=== PATIENT | female | born 1970 | race Caucasian/White ===

== ENCOUNTER 2023-01-25 12:56 | Emergency (ER) | payer OTHER, SELFPAY ==
--- NOTE | 2023-01-25 13:08 | ECG_ITS ---
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
--- NOTE | 2023-01-25 13:08 | XR_ITS ---
[address] [address] Patient Name: VERÓNICA BATISTA MRN: [id number] date: 1970 Sex: F Assigned Patient Location: ER Current Patient Location: ED.MAIN Accession/Order Number: [id number] Exam Date: 01/25/2023 13:12 Report Date: 01/25/2023 13:28 At the request of: SIM VELAZQUEZ Procedure: XR chest 1V EXAM: XR chest 1V HISTORY: SVT COMPARISON: None. TECHNIQUE: AP view of the chest. FINDINGS: The cardiomediastinal silhouette is normal. The lungs are clear. There is no pneumothorax. No pleural effusion is noted. The osseous structures are intact. IMPRESSION: No acute cardiopulmonary process. Electronically authenticated by: SHANNAN CLEARY Date: 01/25/2023 13:28
[2023-01-25 13:10] VITALS: BP 149/102; PULSE 195; RESP 20; TEMP 36.8; O2SAT 100; BMI 47.3
--- NOTE | 2023-01-25 13:11 | ED_ITS ---
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 Patient denied prior history of SVT or rapid atrial fibrillation. She takes medicine for diabetes and for her thyroid. She said that she had a similar episode previously but with deep calming breaths it went away . No recent illness or injury. No fever or chills. She is anxious on arrival. Related Data Home Medications Medication Instructions Recorded Confirmed levocetirizine 5 mg tablet 5 mg PO DAILY 01/25/23 01/25/23 (Allergy Relief (levocetirizine)) levothyroxine 100 mcg tablet 100 mcg PO DAILY 01/25/23 01/25/23 (Euthyrox) lovastatin 20 mg tablet 20 mg PO DAILY 01/25/23 01/25/23 semaglutide 2 mg/dose (8 mg/3 mL) 2 mg subcut QWEEK 01/25/23 01/25/23 subcutaneous pen injector (Ozempic) Previous Rx's Medication Instructions Recorded diltiazem HCl 120 mg tablet 120 mg PO QDAY #30 tabs 01/25/23 (Cardizem) Allergies Allergy/AdvReac Type Severity Reaction Status Date / Time No Known Drug Allergies Allergy Verified 01/25/23 13:10 Exam Narrative Exam Narrative: Nurses notes and vital signs reviewed and patient is not hypoxic. afebrile General: Well-appearing and in no apparent distress. Skin: Warm, dry, no pallor noted. No rash. Head: Normocephalic, atraumatic. Eye: Pupils are equal, round and EOMI. No scleral icterus. Ears, Nose, Mouth, and Throat: Oral mucosa is moist Cardiovascular: Tachycardia. Respiratory: No accessory muscle use or respiratory distress. Lungs are clear to auscultation, no wheezing, rales or rhonchi Musculoskeletal: normal ROM, no calf or popliteal tenderness, no lower extremity edema/swelling GI: Abdomen is soft, non-distended. Normal bowel sounds. No tenderness to palpation. No rebound, guarding, or rigidity noted. Neurological: A&O x4. No cranial nerve dysfunction observed. No truncal ataxia. Moves all extremities. Sensation intact. Psychiatric: Cooperative and interactive. Normal mood and affect. Constitutional Vital Signs - 24 hr 01/25/23 13:10 01/25/23 13:39 01/25/23 13:54 Temperature 98.3 F Pulse Rate 170 H 86 Pulse Rate [Monitor] 195 H Respiratory Rate 20 20 12 Blood Pressure 128/77 H 120/74 H Blood Pressure [Right Arm] 149/102 H Pulse Oximetry 100 100 Oxygen Delivery Method Nasal Cannula Oxygen Delivery Flow Rate 2 1 01/25/23 14:39 01/25/23 14:40 Temperature Pulse Rate 97 H Pulse Rate [Monitor] Respiratory Rate 12 Blood Pressure 116/96 H Blood Pressure [Right Arm] Pulse Oximetry Oxygen Delivery Method Room Air Oxygen Delivery Flow Rate Course Vital Signs Vital signs: Vital Signs Temperature 98.3 F 01/25/23 13:10 Pulse Rate 195 H 01/25/23 13:10 Respiratory Rate 20 01/25/23 13:10 Blood Pressure 149/102 H 01/25/23 13:10 Pulse Oximetry 100 01/25/23 13:10 Oxygen Delivery Method Nasal Cannula 01/25/23 13:10 Oxygen Delivery Flow Rate 2 01/25/23 13:10 Temperature 98.3 F 01/25/23 13:10 Pulse Rate 97 H 01/25/23 14:39 Respiratory Rate 12 01/25/23 14:39 Blood Pressure 116/96 H 01/25/23 14:39 Pulse Oximetry 100 01/25/23 13:54 Oxygen Delivery Method Room Air 01/25/23 14:40 Oxygen Delivery Flow Rate 1 01/25/23 13:54 Medical Decision Making MDM Narrative Medical decision making narrative: Patient was placed on cardiac tech and EKG obtained. peripheral IV was est ablished and patient was instructed to be placed on 2 L/m nasal cannula oxygen. Blood drawn and sent for evaluation. portal chest x-ray was ordered. The patient was ordered to receive IV adenosine 6 mg. It slowed her HR to 170s but did not resolved her tachycardia. 12mg Adenosine IV did not affect the HR. The patient was ordered to receive Cardizem 20mg IV. That converted her to NSR @ 92bpm. She immediately felt better. Her workup was otherwise unremarkable - normal electrolytes and kidney function, normal T3 and T4, negative troponin and BNP, unremarkable CXR. the case was discussed with the on-call senior analytical chemist. Dr. Patel recommended the patient have a thirty day event monitor placed, be placed on oral Cardizem 120 mg daily and follow-up in the clinic next week. This is all discussed with the patient and she was agreeable. Instructed to return to the Emergency Department if she has worsening or recurrent symptoms. Lab Data Lab results reviewed: Yes I reviewed the patient's lab results Labs: Lab Results 01/25/23 Range/Units 13:25 WBC 8.3 (4.0-11.0) 10^3/uL RBC 4.85 (4.20-5.40) 10^6/uL Hgb 14.9 (12.0-16.0) g/dL Hct 43.9 (36.0-48.0) % MCV 90.5 (81.0-99.0) fL MCH 30.7 (26.7-34.0) pg MCHC 33.9 (29.9-35.2) g/dL RDW 12.4 (11.0-15.0) % Plt Count 252 (150-450) 10^3/uL MPV 9.7 (9.5-13.5) fL Neut % (Auto) 58.5 (43.0-75.0) % Lymph % (Auto) 29.9 (20.5-60.0) % [place] % (Auto) 8.2 (1.7-12.0) % Eos % (Auto) 1.8 (0.9-7.0) % Baso % (Auto) 1.1 (0.2-2.0) % Neut # (Auto) 4.9 (1.4-6.5) 10^3/uL Lymph # (Auto) 2.5 (1.2-3.8) 10^3/uL [place] # (Auto) 0.7 (0.3-0.8) 10^3/uL Eos # (Auto) 0.2 (0.0-0.7) 10^3/uL Baso # (Auto) 0.1 (0.0-0.1) 10^3/uL Abs Immat Gran (auto) 0.04 H (0.00-0.03) 10^3/uL Imm/Tot Granulo (auto) 0.5 (0.0-0.5) % Sodium 137 (136-145) mmol/L Potassium 3.5 (3.5-5.1) mmol/L Chloride 102 (98-107) mmol/L Carbon Dioxide 22.2 (21.0-32.0) mmol/L Anion Gap 16.3 BUN 15.0 (7.0-18.0) mg/dL Creatinine 0.93 (0.55-1.02) mg/dL Est GFR ( Amer) >60 (>=60) Est GFR (Non-Af Amer) >60 (>=60) BUN/Creatinine Ratio 16.1 Glucose 208 H (74-106) mg/dL Calcium 9.7 (8.5-10.1) mg/dL Total Bilirubin 0.5 (0.2-1.0) mg/dL AST 35 (15-37) U/L ALT 69 H (14-59) U/L Alkaline Phosphatase 75 (46-116) U/L Troponin I High Sens 15.2 (4.0-51.3) pg/mL NT-Pro-B Natriuret Pep 15.0 (<=900.0) pg/mL Total Protein 8.1 (6.4-8.2) g/dL Albumin 4.2 (3.4-5.0) g/dL Globulin 3.9 g/dL Albumin/Globulin Ratio 1.1 Free T4 1.09 (0.76-1.46) ng/dL Free T3 2.34 (2.18-3.98) pg/mL Imaging Data Chest x-ray: Radiologist's impression: Patient Name: VERÓNICA BATISTA MRN: [id number]:[id number] date: 1970 Sex: F Assigned Patient Location: ER Current Patient Location: ED.MAIN Accession/Order Number: [id number] Exam Date: 01/25/2023 13:12 Report Date: 01/25/2023 13:28 At the request of: SIM VELAZQUEZ Procedure: XR chest 1V EXAM: XR chest 1V HISTORY: SVT COMPARISON: None. TECHNIQUE: AP view of the chest. FINDINGS: The cardiomediastinal silhouette is normal. The lungs are clear. There is no pneumothorax. No pleural effusion is noted. The osseous structures are intact. IMPRESSION: No acute cardiopulmonary process. Electronically authenticated by: SHANNAN CLEARY Date: 01/25/2023 13:28 ECG Data Interpretation: EKG interpretation: Emergency Department physician interpretation. SVT at 196bpm. Moderate right axis, non-specific ST changes with some inferolateral depression. #2 EKG after Cardizem bolus - EKG interpretation: Emergency Department physician interpretation. Normal sinus rhythm at 92bpm. rightward axis, nonspecific ST and T-wave changes with some subtle ST depression remaining in the inferior and lateral leads. no ST elevation noted Critical Care Time Critical Care Time Critical Care Time: Yes Total Critical Care Time: 45 Attestation: independent of procedures and includes time spent at the bedside as well as talking with the road monkey senior analytical chemist, ordering and supervising adenosine and cardizem administration. Discharge Plan Discharge Chief Complaint: Chest Pain Clinical Impression: SVT (supraventricular tachycardia) Patient Disposition: Home, Self-Care Time of Disposition Decision: 14:46 Prescriptions / Home Meds: New diltiazem HCl [Cardizem] 120 mg tablet 120 mg PO QDAY Qty: 30 0RF No Action lovastatin 20 mg tablet 20 mg PO DAILY levothyroxine [Euthyrox] 100 mcg tablet 100 mcg PO DAILY levocetirizine [Allergy Relief (levocetirizin)] 5 mg tablet 5 mg PO DAILY Ozempic 2 mg/dose (8 mg/3 mL) pen injector 2 mg subcut QWEEK Instructions: Supraventricular Tachycardia (ED) Stand Alone Forms: Portal Instructions Referrals: MALKA MONTOYA [Primary Care Provider] - 1 week JANICE NUNEZ [Physician] - As soon as possible
[2023-01-25] MEDS: ADENOSINE 6 MG/2 ML VIAL IVP (13:19)
[2023-01-25] MEDS: 0.9 % SODIUM CHLORIDE 1,000 ML 999 ML IV (13:24)
[2023-01-25 13:38] LABS: Basophils Absolute Auto 0.1 10^3/uL (0.0-0.1); Basophils Percent Auto 1.1 % (0.2-2.0); Eosinophils Absolute Auto 0.2 10^3/uL (0.0-0.7); Eosinophils Percent Auto 1.8 % (0.9-7.0); Hematocrit 43.9 % (36.0-48.0); Hemoglobin 14.9 g/dL (12.0-16.0); Immature Granulocytes Abs Auto 0.04 10^3/uL (0.00-0.03); Immature Granulocytes Pct Auto 0.5 % (0.0-0.5); Lymphocytes Absolute Auto 2.5 10^3/uL (1.2-3.8); Lymphocytes Percent Auto 29.9 % (20.5-60.0); Mean Corpuscular HGB Conc 33.9 g/dL (29.9-35.2); Mean Corpuscular Hemoglobin 30.7 pg (26.7-34.0); Mean Corpuscular Volume 90.5 fL (81.0-99.0); Mean Platelet Volume 9.7 fL (9.5-13.5); Monocytes Absolute Auto 0.7 10^3/uL (0.3-0.8); Monocytes Percent Auto 8.2 % (1.7-12.0); Neutrophils Absolute Auto 4.9 10^3/uL (1.4-6.5); Neutrophils Percent Auto 58.5 % (43.0-75.0); Platelet Count 252 10^3/uL (150-450); Red Blood Count 4.85 10^6/uL (4.20-5.40); Red Cell Distribution Width 12.4 % (11.0-15.0); White Blood Count 8.3 10^3/uL (4.0-11.0)
[2023-01-25] MEDS: ADENOSINE 6 MG/2 ML VIAL 12 MG IVP (13:38)
[2023-01-25 13:39] VITALS: BP 128/77; PULSE 170; RESP 20
--- NOTE | 2023-01-25 13:40 | PC.NURSE ---
12mg Adenosin given with DR at bedside, Hr from 190's to 170's. New order recved
[2023-01-25] MEDS: ONDANSETRON PF 4 MG/2 ML VIAL IV (13:46)
[2023-01-25] MEDS: DILTIAZEM HCL 25 MG/5 ML VIAL 20 MG IV (13:46)
--- NOTE | 2023-01-25 13:51 | ECG_ITS ---
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
[2023-01-25 13:54] VITALS: BP 120/74; PULSE 86; RESP 12; O2SAT 100
--- NOTE | 2023-01-25 13:55 | NUTR.NU ---
HR in the 80's after Cardizem bolus, 2nd EKG complete
[2023-01-25 14:03] LABS: Alanine Aminotransferase 69 U/L (14-59); Albumin Globulin Ratio 1.1; Albumin Level 4.2 g/dL (3.4-5.0); Alkaline Phosphatase 75 U/L (46-116); Anion Gap 16.3; Aspartate Amino Transferase 35 U/L (15-37); BUN Creatinine Ratio 16.1; Bilirubin Total 0.5 mg/dL (0.2-1.0); Calcium 9.7 mg/dL (8.5-10.1); Carbon Dioxide 22.2 mmol/L (21.0-32.0); Chloride 102 mmol/L (98-107); Estimated GFR (African America >60 (>=60); Estimated GFR (Non-African Ame >60 (>=60); Globulin 3.9 g/dL; Glucose 208 mg/dL (74-106); Potassium 3.5 mmol/L (3.5-5.1); Sodium 137 mmol/L (136-145); Total Protein 8.1 g/dL (6.4-8.2); Troponin I High Sensitivity 15.2 pg/mL (4.0-51.3)
[2023-01-25 14:04] LABS: Free T3 2.34 pg/mL (2.18-3.98)
[2023-01-25 14:05] LABS: Free T4 1.09 ng/dL (0.76-1.46)
--- NOTE | 2023-01-25 14:37 | CA_ITS ---
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
[2023-01-25 14:39] VITALS: BP 116/96; PULSE 97; RESP 12
--- NOTE | 2023-01-25 14:40 | PC.NURSE ---
Now that pt is in SR nasal canula O2 removed. Pt states no SOB at this time
[2023-01-25 15:14] VITALS: BP 136/88; PULSE 94; RESP 16
== END 2023-01-25 15:46 | disposition home or self-care (01) ==
PROVIDERS: Emergency Provider Emergency Medicine; PCP Nurse Practitioner
DX: I47.1 Supraventricular tachycardia (principal); E11.9 Type 2 diabetes mellitus without complications; E07.9 Disorder of thyroid, unspecified; Z79.899 Other long term (current) drug therapy; Z79.890 Hormone replacement therapy
CPT/HCPCS: 36415; 71045; 80053; 83880; 84439; 84481; 84484; 85025; 93005; 93270; 96374; 96375; 99285